=== PATIENT | male | born 1995 | race Caucasian/White ===

== ENCOUNTER 2022-05-13 01:39 | Inpatient (IN) ==
[2022-05-13] MEDS ORDERED: SODIUM CHLORIDE 0.9% 1000ML 1,000 ML IV STA (01:54)
[2022-05-13] MEDS ORDERED: ONDANSETRON INJ 2 MG/ML 2 ML VIAL IV STA (01:54)
--- NOTE | 2022-05-13 01:58 | Emergency Department Note ---
Impression & Plan Acute kidney injury ADMIT ED Provider Note HPI: The patient is a 27-year-old male who presents to the emergency department over concern for dehydration. Patient tells me that throughout the day today at work he was having generalized body aches, states he had some nausea and vomiting throughout the day today as well. 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 Patient went to the emergency room at [facility], he had lab work performed while waiting to be roomed and this did show evidence of elevated BUN and elevated creatinine at about 2.2. Patient got tired of waiting for room and therefore left and came to this emergency department for further assessment. On arrival the patient is hemodynamically stable, he complains of some myalgias as well as abdominal discomfort in addition to the nausea and vomiting he reported earlier in the day. He is otherwise in no acute distress on my initial assessment. ROS: - MSK: Myalgias - General: Abnormal outpatient lab work - GI: Nausea and vomiting, diarrhea *10 point review systems was conducted and is otherwise negative unless stated above *Outpatient medications and allergy history reviewed PE: General: Alert, NAD HEENT: Normocephalic, atraumatic Eyes: Extraocular eye movement is intact, no scleral erythema Pulmonary: Clear to auscultation bilaterally, no wheezing Cardio: Regular rate and rhythm GI: Abdomen is soft, nontender : No suprapubic tenderness MSK: No evidence of trauma or malformation of the extremities, no edema Skin: No evidence of rash Neuro: Alert, no focal deficits Psychiatric: Cooperative case monitor: - An order was placed for continuous cardiac monitoring - Patient was noted to be in Sinus rhythm with a rate of 60 CT ABDOMEN & PELVIS With Contrast: INDICATION: TECHNIQUE: Multiple, contiguous axial cuts of the abdomen and pelvis are obtained from the lung bases to the ischial tuberosities following the administration of IV contrast. Sagittal and coronal reformatted images are available. COMPARISON: FINDINGS: The lung bases are clear. The liver and spleen are normal in size and free of mass lesions. The gallbladder, bile ducts and pancreas are normal. The adrenal gland are unremarkable. The kidneys are normal in size and contour. No lesion or hydronephrosis. The appendix is unremarkable, as is the rest of the GI tract. Aorta is normal caliber. No adenopathy or extraluminal air. The osseous structures are normal. 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 Radiologist: Petros Dawn MD Medical Decision Making: Patient presented to the emergency department with concern for dehydration, states that he has had nausea and vomiting recently, states he is also had some myalgias. COVID-19 testing was obtained and is negative. Lab work was obtained and shows evidence of multiple metabolic abnormalities, patient has creatinine elevation to 2.12, also noted to have hyponatremia 128, hypokalemia at 2.8, patient also has a low chloride level at 81. Lactic acid is within normal limits, patient does have a slight anion gap, blood sugar is within normal limits. CT imaging of the abdomen pelvis was also obtained that shows no eviden ce of any acute findings. Patient was IV fluid resuscitated here in the ED, on my reassessment he states he is feeling improved and no longer is having any muscle cramps. I discussed the above findings with the patient, I did recommend admission given his multiple electrolyte abnormalities, acute kidney injury, and the fact that he does have proteinuria on urinalysis as well. Patient was in agreement. Case was discussed with the on-call hospitalist for [facility][note 3], Dr. Garcia, and the patient was admitted in stable condition for further care. Diagnosis: 1. Acute kidney injury 2. Nausea and vomiting 3. Hypokalemia 4. Hyponatremia 5. Hypochloremia 6. Proteinuria Disposition: Admission Juni Santoyo DO Emergency Medicine Past Med/Surg History Medical History (Updated 05/13/22 @ 06:11 by Juni Santoyo DO) Rhabdomyolysis Family History Other Family history non-contributory Social History Smoking Status: Current every day smoker Tobacco Type: Cigarettes Preferred Language: Salvadorean marital status: Single Current Living Situation: Significant Other current occupational status: employed Feels Safe at Home: Yes Allergies Allergies Allergy/AdvReac Type Severity Reaction Status Date / Time No Known Allergies Allergy Verified 11/14/19 22:04 Home Meds Home Medications Medication Instructions Recorded Confirmed Medical Marijuana 1 dose inhalation DIRECTED PRN 11/14/19 Pain Results & Data (ED) Vital Signs Vital Signs - 24 hr 05/13/22 01:42 05/13/22 02:08 05/13/22 02:36 Temperature 36.5 C Temperature Source Temporal Artery Scan Pulse Rate 98 H 105 H Pulse Rate [Finger] 64 Pulse Rhythm Regular Respiratory Rate 18 18 18 Respiratory Effort / Characteristics Non-Labored Spontaneous Non-Labored Spontaneous Respiratory Depth Normal Normal Blood Pressure 140/99 Blood Pressure [Left Arm] 146/85 H Blood Pressure Mean 112 Blood Pressure Mean [Left Arm] 105 Blood Pressure Position [Left Arm] Sitting Pulse Oximetry 98 97 97 Oxygen Delivery Method Room Air Room Air Room Air Sepsis Recent Fever Within 48 Hours No Sepsis New/Unexplained Change in Mental Status N/A Sepsis Action Taken by Nursing No Action Required 05/13/22 04:39 Temperature Temperature Source Pulse Rate Pulse Rate [Finger] 58 L Pulse Rhythm Respiratory Rate 16 Respiratory Effort / Characteristics Non-Labored Spontaneous Respiratory Depth Normal Blood Pressure Blood Pressure [Left Arm] 159/90 H Blood Pressure Mean Blood Pressure Mean [Left Arm] 113 Blood Pressure Position [Left Arm] Pulse Oximetry 98 Oxygen Delivery Method Room Air Sepsis Recent Fever Within 48 Hours Sepsis New/Unexplained Change in Mental Status Sepsis Action Taken by Nursing Laboratory Data Result diagrams: 05/13/22 02:00 05/13/22 02:00 Lab Results 05/13/22 05/13/22 05/13/22 Range/Units 02:00 02:00 04:28 WBC 11.08 H (4.8-10.8) K/ul RBC 5.54 (4.63-6.08) M/uL Hgb 17.6 (14.0-18.0) g/dl Hct 47.3 (40.1-51.0) % MCV 85.4 (80.0-100.0) fL MCH 31.8 (25.0-34.0) pg MCHC 37.2 H (32.0-36.0) g/dL RDW Std Deviation 37.7 (36.4-46.3) fL RDW Coeff of [place] 12.0 (11.5-14.5) % Plt Count 335 (130-400) K/uL MPV 10.5 (9.4-12.4) fL Immature Gran % (Auto) 0.1 % Neut % (Auto) 81.7 % Lymph % (Auto) 13.0 % [place] % (Auto) 5.1 % Eos % (Auto) 0.0 % Baso % (Auto) 0.1 % Neut # (Auto) 9.05 H (1.4-6.5) K/uL Lymph # (Auto) 1.44 (1.2-3.4) K/uL [place] # (Auto) 0.57 (0.24-0.82) K/uL Eos # (Auto) 0.00 (0-0.50) K/uL Baso # (Auto) 0.01 (0-0.2) K/uL Immature Gran # (Auto) 0.01 (0.00-0.02) K/uL Sodium 128 L (136-145) mmol/L Potassium 2.8 L (3.5-5.1) mmol/L Chloride 81 L (98-107) mmol/L Carbon Dioxide 31 (21-32) mmol/L Anion Gap 16 H (3-11) BUN 33 H (6-23) mg/dl Creatinine 2.12 H (0.6-1.4) mg/dl Est Cr Clr Drug Dosing 61.4 ml/min Est GFR ( Amer) 47.3 ml/min Est GFR (Non-Af Amer) 40.8 ml/min BUN/Creatinine Ratio 15.6 (10-20) Glucose 128 H (70-99(Fasting)) mg/dl Lactate 1.5 (0.4-2.0) mmol/L Calcium 10.4 H (8.5-10.1) mg/dl Total Bilirubin 1.0 (0.2-1.0) mg/dl AST 24 (13-39) U/L ALT 26 (7-52) U/L Alkaline Phosphatase 65 (34-104) U/L Total Creatine Kinase 416 H (30-223) U/L Total Protein 9.2 H (6.0-8.3) gm/dl Albumin 5.6 H (3.4-5.0) gm/dl Globulin 3.6 (2.5-4.0) gm/dl Albumin/Globulin Ratio 1.6 (0.9-2) Lipase 39 (11-82) U/L Urine Color Urine Appearance (Clear) Urine pH (4.5-7.5) Ur Specific [place] (1.000-1.030) Urine Protein (Negative) Urine Glucose (UA) (Negative) Urine Ketones (Negative) Urine Blood (Negative) Urine Nitrite (Negative) Urine Bilirubin (Negative) Urine Urobilinogen (Negative) Ur Leukocyte Esterase (Negative) Urine WBC (Auto) (0-5) /hpf Urine RBC (Auto) (0-4) /hpf U Hyaline Cast (Auto) (0-5) /lpf U Epithel Cells (Auto) (0-5) /lpf Urine Bacteria (Auto) (Negative) Ur Renal Epithelial Cell SARS-CoV-2 (PCR) (Negative) Influenza Type A (PCR) (Neg) Influenza Type B (PCR) (Neg) RSV (RT-PCR) (Neg) 05/13/22 05/13/22 Range/Units Unknown Unknown WBC (4.8-10.8) K/ul RBC (4.63-6.08) M/uL Hgb (14.0-18.0) g/dl Hct (40.1-51.0) % MCV (80.0-100.0) fL MCH (25.0-34.0) pg MCHC (32.0-36.0) g/dL RDW Std Deviation (36.4-46.3) fL RDW Coeff of [place] (11.5-14.5) % Plt Count (130-400) K/uL MPV (9.4-12.4) fL Immature Gran % (Auto) % Neut % (Auto) % Lymph % (Auto) % [place] % (Auto) % Eos % (Auto) % Baso % (Auto) % Neut # (Auto) (1.4-6.5) K/uL Lymph # (Auto) (1.2-3.4) K/uL [place] # (Auto) (0.24-0.82) K/uL Eos # (Auto) (0-0.50) K/uL Baso # (Auto) (0-0.2) K/uL Immature Gran # (Auto) (0.00-0.02) K/uL Sodium (136-145) mmol/L Potassium (3.5-5.1) mmol/L Chloride (98-107) mmol/L Carbon Dioxide (21-32) mmol/L Anion Gap (3-11) BUN (6-23) mg/dl Creatinine (0.6-1.4) mg/dl Est Cr Clr Drug Dosing ml/min Est GFR ( Amer) ml/min Est GFR (Non-Af Amer) ml/min BUN/Creatinine Ratio (10-20) Glucose (70-99(Fasting)) mg/dl Lactate (0.4-2.0) mmol/L Calcium (8.5-10.1) mg/dl Total Bilirubin (0.2-1.0) mg/dl AST (13-39) U/L ALT (7-52) U/L Alkaline Phosphatase (34-104) U/L Total Creatine Kinase (30-223) U/L Total Protein (6.0-8.3) gm/dl Albumin (3.4-5.0) gm/dl Globulin (2.5-4.0) gm/dl Albumin/Globulin Ratio (0.9-2) Lipase (11-82) U/L Urine Color Dark Yellow Urine Appearance Cloudy A (Clear) Urine pH 5.0 (4.5-7.5) Ur Specific [place] 1.025 (1.000-1.030) Urine Protein 3+ H (Negative) Urine Glucose (UA) Negative (Negative) Urine Ketones Trace H (Negative) Urine Blood Negative (Negative) Urine Nitrite Negative (Negative) Urine Bilirubin 1+ H (Negative) Urine Urobilinogen Negative (Negative) Ur Leukocyte Esterase Negative (Negative) Urine WBC (Auto) 10-30 H (0-5) /hpf Urine RBC (Auto) 5-10 H (0-4) /hpf U Hyaline Cast (Auto) >30 H (0-5) /lpf U Epithel Cells (Auto) 10-20 H (0-5) /lpf Urine Bacteria (Auto) Negative (Negative) Ur Renal Epithelial Cell Not Reportable SARS-CoV-2 (PCR) NEGATIVE (Negative) Influenza Type A (PCR) Negative (Neg) Influenza Type B (PCR) Negative (Neg) RSV (RT-PCR) Negative (Neg) Administered Medications Discontinued Medications Sodium Chloride (Nss 1000ml) 1,000 mls @ 999 mls/hr IV .Q1H1M STA Stop: 05/13/22 02:54 Last Infusion: 05/13/22 02:57 Dose: 0 mls/hr Documented By: Admin: 05/13/22 02:06 Dose: 999 mls/hr Documented By: MELQUIADES Sodium Chloride (Nss 1000ml) 1,000 mls @ 999 mls/hr IV .Q1H1M ONE Stop: 05/13/22 03:53 Last Infusion: 05/13/22 03:58 Dose: 0 mls/hr Documented By: Admin: 05/13/22 02:57 Dose: 999 mls/hr Documented By: MELQUIADES Sodium Chloride (Nss 1000ml) 1,000 mls @ 999 mls/hr IV .Q1H1M ONE Stop: 05/13/22 05:14 Last Infusion: 05/13/22 05:28 Dose: 0 mls/hr Documented By: Admin: 05/13/22 04:29 Dose: 999 mls/hr Documented By: CLAUDY Ioversol (Optiray 300 100ml) 100 ml IV ONCE ONE Stop: 05/13/22 03:39 Last Admin: 05/13/22 03:39 Dose: 100 ml Documented By: ISAAC Ondansetron HCl (Ondansetron Inj 2 Mg/Ml 2 Ml Vial) 4 mg IV NOW STA Stop: 05/13/22 01:55 Last Admin: 05/13/22 02:06 Dose: 4 mg Documented By: MELQUIADES Potassium Chloride (Potassium Chloride Crtab 20 Meq Tabcr) 40 meq PO NOW STA Stop: 05/13/22 02:55 Last Admin: 05/13/22 02:57 Dose: 40 meq Documented By: MELQUIADES Discharge Plan Visit Data Chief Complaint: Pain (Generalized) Stated Complaint: BODY CRAMPING,VOMITING ED Provider: Juni Santoyo Discharge Problem: Acute kidney injury Patient Disposition: Admitted As Inpatient Forms Stand Alone Forms: [facility] Prescriptions Prescriptions: No Action Medical Marijuana 1 dose inhalation DIRECTED PRN (Reason: Pain) Referrals Referrals: PCP,NO [Primary Care Provider] -
[2022-05-13 02:29] LABS: Basophils # (auto) 0.01 K/uL (0-0.2); Basophils % (auto) 0.1 %; Hematocrit (blood only) 47.3 % (40.1-51.0); Hemoglobin 17.6 g/dl (14.0-18.0); Immature Granulocytes # (auto) 0.01 K/uL (0.00-0.02); Immature Granulocytes % (auto) 0.1 %; Lymphocytes # (auto) 1.44 K/uL (1.2-3.4); Mean Corpuscular Hemoglobin 31.8 pg (25.0-34.0); Mean Corpuscular Hgb Conc 37.2 g/dL (32.0-36.0); Mean Corpuscular Volume 85.4 fL (80.0-100.0); Mean Platelet Volume 10.5 fL (9.4-12.4); Monocytes # (auto) 0.57 K/uL (0.24-0.82); Monocytes % (auto) 5.1 %; Neutrophils # (auto) 9.05 K/uL (1.4-6.5); Neutrophils % (auto) 81.7 %; Platelet Count 335 K/uL (130-400); RDW Standard Deviation 37.7 fL (36.4-46.3); Red Blood Count 5.54 M/uL (4.63-6.08); White Blood Count 11.08 K/ul (4.8-10.8)
[2022-05-13 02:36] LABS: Appearance Urine Cloudy (Clear); Bacteria Urine Automated Negative (Negative); Blood Urine Negative (Negative); Color Urine Dark Yellow; Glucose Urine UA Negative (Negative); Ketones Urine Trace (Negative); Leukocyte Esterase Urine Negative (Negative); Nitrite Urine Negative (Negative); Protein Urine 3+ (Negative); Specific Gravity Urine 1.025 (1.000-1.030); Urobilinogen Urine Negative (Negative)
[2022-05-13 02:43] LABS: Bilirubin Urine 1+ (Negative)
[2022-05-13 02:52] LABS: Albumin Globulin Ratio 1.6 (0.9-2); Albumin Level 5.6 gm/dl (3.4-5.0); BUN Creatinine Ratio 15.6 (10-20); Calcium 10.4 mg/dl (8.5-10.1); Creatinine Clr Calc Pharmacy 61.4 ml/min; Est GFR (African American) 47.3 ml/min; Est GFR (Non-African American) 40.8 ml/min; Globulin 3.6 gm/dl (2.5-4.0); Potassium 2.8 mmol/L (3.5-5.1); Total Protein 9.2 gm/dl (6.0-8.3)
[2022-05-13] MEDS ORDERED: SODIUM CHLORIDE 0.9% 1000ML 1,000 ML IV ONE ×2 (02:53→04:14)
[2022-05-13] MEDS ORDERED: POTASSIUM CHLORIDE CRTAB 20 MEQ TABCR PO STA ×2 (02:54→06:20)
[2022-05-13 03:09] LABS: Cast Urine Automated >30 /lpf (0-5)
[2022-05-13 03:10] LABS: Influenza A virus by PCR Negative (Neg); Influenza B virus by PCR Negative (Neg); RSV by PCR Negative (Neg); SARS CoV2 RNA(COVID-19) InHosp NEGATIVE (Negative)
[2022-05-13] MEDS ORDERED: OPTIRAY 300 100mL IV ONE (03:38)
--- NOTE | 2022-05-13 06:29 | History & Physical Report ---
Date of Service May 13, 2022 Assessment & Plan (1) Hyponatremia: Plan: ARF, hyponatremia, hypokalemia Secondary to clinical dehydration Possible viral illness Mild rhabdomyolysis Hyperglycemia rule out DM Ongoing tobacco abuse Medical telemetry Careful correction of sodium Hold off on IV fluid until next chemistry Hyponatremia work-up Nephrology consult if without improvement Replace electrolytes Check hemoglobin A1c Nicotine patch as needed DVT prophylaxis. Heparin subcu Full code Text document was generated using [employer] voice recognition software. It may contain grammatical or spelling errors. Kindly contact undersigned for clarification of any documentation item in question. History of Present Illness Chief Complaint: Abnormal blood work, dehydration Primary Care Provider: NO PCP History obtained from patient, family, and records. Medical history significant for tobacco abuse. 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 Work very heavy. Patient has to work in a very hot building. Patient did not feel well after coming off work last night. Body aches followed by nausea and vomiting. Generalized abdominal cramping. No diarrhea. No chest pain, no shortness of breath. Patient not sure about sick contacts. Patient seen at [facility] ER last night. Serum sodium noted to be 129, serum potassium 2.9, anion gap was 25, serum creatinine 2.2. Patient left AGAINST MEDICAL ADVICE because of long wait at the ED. Patient brought by to [facility] ER for further evaluation. 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 Allergies Allergy/AdvReac Type Severity Reaction Status Date / Time No Known Allergies Allergy Verified 11/14/19 22:04 Home Medications Medication Instructions Recorded Confirmed Type Medical Marijuana 1 dose inhalation DIRECTED PRN 11/14/19 History Pain Past Med/Surg History Medical History (Updated 05/13/22 @ 07:43 by Lonnie Ortega MD) Rhabdomyolysis Family History Other Family history non-contributory Social History Smoking Status: Current every day smoker Tobacco Type: Cigarettes Preferred Language: Finnish marital status: Single Current Living Situation: Significant Other current occupational status: employed Feels Safe at Home: Yes Review of Systems Review of Systems: As per HPI, all other systems reviewed and negative Physical Exam Physical Exam: GENERAL: Comfortable, obese, pleasant, no respiratory distress SKIN: Normal color, warm HEENT: [place] palpebral conjunctivae, no ptosis, dry buccal mucosa NECK : Supple, no tenderness CHEST : Occasional expiratory wheezes (chronic secondary to smoking as per patient), no tenderness HEART : Bradycardic, no obvious murmurs ABDOMEN: Some distention, nontender EXTREMITIES : No LE swelling/tenderness, no other conspicuous deformities noted NEUROLOGIC : Coherent, no facial asymmetry, no other gross focality Results & Data Results & Data ([facility]) Vital Signs (Past 12 Hours) Vital Signs Temp Pulse Pulse Resp BP BP Pulse Ox 05/13/22 04:39 58 L 16 159/90 H 98 05/13/22 02:36 64 18 146/85 H 97 05/13/22 02:08 105 H 18 97 05/13/22 01:42 36.5 C 98 H 18 140/99 98 O2 Del Method 05/13/22 04:39 Room Air 05/13/22 02:36 Room Air 05/13/22 02:08 Room Air 05/13/22 01:42 Room Air Laboratory Results Laboratory Results WBC 11.08 K/ul (4.8-10.8) H 05/13/22 02:00 RBC 5.54 M/uL (4.63-6.08) 05/13/22 02:00 Hgb 17.6 g/dl (14.0-18.0) 05/13/22 02:00 Hct 47.3 % (40.1-51.0) 05/13/22 02:00 MCV 85.4 fL (80.0-100.0) 05/13/22 02:00 MCH 31.8 pg (25.0-34.0) 05/13/22 02:00 MCHC 37.2 g/dL (32.0-36.0) H 05/13/22 02:00 RDW Std Deviation 37.7 fL (36.4-46.3) 05/13/22 02:00 RDW Coeff of [place] 12.0 % (11.5-14.5) 05/13/22 02:00 Plt Count 335 K/uL (130-400) 05/13/22 02:00 MPV 10.5 fL (9.4-12.4) 05/13/22 02:00 Immature Gran % (Auto) 0.1 % 05/13/22 02:00 Neut % (Auto) 81.7 % 05/13/22 02:00 Lymph % (Auto) 13.0 % 05/13/22 02:00 [place] % (Auto) 5.1 % 05/13/22 02:00 Eos % (Auto) 0.0 % 05/13/22 02:00 Baso % (Auto) 0.1 % 05/13/22 02:00 Neut # (Auto) 9.05 K/uL (1.4-6.5) H 05/13/22 02:00 Lymph # (Auto) 1.44 K/uL (1.2-3.4) 05/13/22 02:00 [place] # (Auto) 0.57 K/uL (0.24-0.82) 05/13/22 02:00 Eos # (Auto) 0.00 K/uL (0-0.50) 05/13/22 02:00 Baso # (Auto) 0.01 K/uL (0-0.2) 05/13/22 02:00 Immature Gran # (Auto) 0.01 K/uL (0.00-0.02) 05/13/22 02:00 Sodium 128 mmol/L (136-145) L 05/13/22 02:00 Potassium 2.8 mmol/L (3.5-5.1) L 05/13/22 02:00 Chloride 81 mmol/L (98-107) L 05/13/22 02:00 Carbon Dioxide 31 mmol/L (21-32) 05/13/22 02:00 Anion Gap 16 (3-11) H 05/13/22 02:00 BUN 33 mg/dl (6-23) H 05/13/22 02:00 Creatinine 2.12 mg/dl (0.6-1.4) H 05/13/22 02:00 Est Cr Clr Drug Dosing 61.4 ml/min 05/13/22 02:00 Est GFR ( Amer) 47.3 ml/min 05/13/22 02:00 Est GFR (Non-Af Amer) 40.8 ml/min 05/13/22 02:00 BUN/Creatinine Ratio 15.6 (10-20) 05/13/22 02:00 Glucose 128 mg/dl (70-99(Fasting)) H 05/13/22 02:00 Lactate 1.5 mmol/L (0.4-2.0) 05/13/22 04:28 Calcium 10.4 mg/dl (8.5-10.1) H 05/13/22 02:00 Total Bilirubin 1.0 mg/dl (0.2-1.0) 05/13/22 02:00 AST 24 U/L (13-39) 05/13/22 02:00 ALT 26 U/L (7-52) 05/13/22 02:00 Alkaline Phosphatase 65 U/L (34-104) 05/13/22 02:00 Total Creatine Kinase 416 U/L (30-223) H 05/13/22 02:00 Total Protein 9.2 gm/dl (6.0-8.3) H 05/13/22 02:00 Albumin 5.6 gm/dl (3.4-5.0) H 05/13/22 02:00 Globulin 3.6 gm/dl (2.5-4.0) 05/13/22 02:00 Albumin/Globulin Ratio 1.6 (0.9-2) 05/13/22 02:00 Lipase 39 U/L (11-82) 05/13/22 02:00 Urine Color Dark Yellow 05/13/22 Unknown Urine Appearance Cloudy (Clear) A 05/13/22 Unknown Urine pH 5.0 (4.5-7.5) 05/13/22 Unknown Ur Specific [place] 1.025 (1.000-1.030) 05/13/22 Unknown Urine Protein 3+ (Negative) H 05/13/22 Unknown Urine Glucose (UA) Negative (Negative) 05/13/22 Unknown Urine Ketones Trace (Negative) H 05/13/22 Unknown Urine Blood Negative (Negative) 05/13/22 Unknown Urine Nitrite Negative (Negative) 05/13/22 Unknown Urine Bilirubin 1+ (Negative) H 05/13/22 Unknown Urine Urobilinogen Negative (Negative) 05/13/22 Unknown Ur Leukocyte Esterase Negative (Negative) 05/13/22 Unknown Urine WBC (Auto) 10-30 /hpf (0-5) H 05/13/22 Unknown Urine RBC (Auto) 5-10 /hpf (0-4) H 05/13/22 Unknown U Hyaline Cast (Auto) >30 /lpf (0-5) H 05/13/22 Unknown U Epithel Cells (Auto) 10-20 /lpf (0-5) H 05/13/22 Unknown Urine Bacteria (Auto) Negative (Negative) 05/13/22 Unknown Ur Renal Epithelial Cell Not Reportable 05/13/22 Unknown SARS-CoV-2 (PCR) NEGATIVE (Negative) 05/13/22 Unknown Influenza Type A (PCR) Negative (Neg) 05/13/22 Unknown Influenza Type B (PCR) Negative (Neg) 05/13/22 Unknown RSV (RT-PCR) Negative (Neg) 05/13/[address] abdomen pelvis initial read: FINDINGS: The lung bases are clear. The liver and spleen are normal in size and free of mass lesions. The gallbladder, bile ducts and pancreas are normal. The adrenal gland are unremarkable. The kidneys are normal in size and contour. No lesion or hydronephrosis. The appendix is unremarkable, as is the rest of the GI tract. Aorta is normal caliber. No adenopathyor extraluminal air. The osseous structures are normal. 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 Chest x-ray as per my interpretation elevated right hemidiaphragm, thin heart
[2022-05-13] MEDS ORDERED: PROMETHAZINE HCL 12.5 MG in SODIUM CHLORIDE 0.9% 50 ML IV PRN (06:54)
[2022-05-13] MEDS ORDERED: oxyCODONE HCL IR 5 MG TAB (IMMEDIATE RELEASE) PO PRN (06:54)
[2022-05-13] MEDS ORDERED: LORazepam 0.5 MG TAB PO PRN (06:54)
[2022-05-13 07:39] LABS: Amphetamines+Metham, Urine Neg (Neg); Barbiturates, Urine Neg (Neg); Benzodiazepine, Urine Neg (Neg); Cocaine, Urine Neg (Neg); MDMA (Ecstacy), Urine Neg (Neg); Methadone, Urine Neg (Neg); Opiate, Urine Neg (Neg); Phencyclidine, Urine Neg (Neg)
--- NOTE | 2022-05-13 07:47 | CT Scan Report ---
ABDOMEN AND PELVIS CT WITH IV CONTRAST CT DOSE: 751.49 mGy.cm HISTORY: Generalized abdominal pain. Nausea. Vomiting. TECHNIQUE: Multiaxial CT images of the abdomen and pelvis were performed following the use of intrave nous contrast. A dose lowering technique was utilized adhering to the principles of ALARA. COMPARISON STUDY: None. FINDINGS: There are few small subpleural nodular densities within the left lower lobe with the larges t on image 42 measuring 5 mm. These are of doubtful clinical significance given the patient's age. No pneumoperitoneum. No pneumatosis. No fractures within the visualized osseous structures. The liver, gallbladder, spleen, adrenal glands, pancreas, and kidneys are unremarkable. No hydronephrosis. Gisselle l bladder. No pelvic free fluid. There is an atrophic right seminal vesicle in comparison to the left . The main portal vein is patent. No retroperitoneal lymphadenopathy. Normal caliber abdominal aorta. No bowel wall thickening or obstruction. Normal appendix. IMPRESSION: 1. No bowel wall thickening or obstruction. 2. No hydronephrosis. 3. Normal appendix. 3. Incidental note is made of an atrophic right seminal vesicle. ACT 112: Negative or not required by law. Electronically signed by: Jonas Lawrence M.D. 05/13/2022 7:45 AM
--- NOTE | 2022-05-13 08:09 | XRay Report ---
XR chest 1V portable HISTORY: renal failure COMPARISON: Chest 11/14/2019. FINDINGS: The lungs are clear. Cardiac silhouette is normal in size. No pleural effusions. No pneumot horax. There is mild elevation of the right hemidiaphragm. IMPRESSION: Mild elevation of the right hemidiaphragm. Otherwise, no acute process within the chest. ACT 112: Negative or not required by law. Electronically signed by: Jonas Lawrence M.D. 05/13/2022 8:08 AM
[2022-05-13 08:29] LABS: BUN Creatinine Ratio 22.4 (10-20); Calcium 8.5 mg/dl (8.5-10.1); Creatinine Clr Calc Pharmacy 121.7 ml/min; Est GFR (African American) 108.1 ml/min; Est GFR (Non-African American) 93.3 ml/min; Potassium 3.2 mmol/L (3.5-5.1)
[2022-05-13 08:40] LABS: Estimated Average Glucose 120 mg/dl; Hemoglobin A1C 5.8 % (4.5-5.6)
[2022-05-13] MEDS ORDERED: ACETAMINOPHEN 325 MG TAB PO PRN (10:18)
[2022-05-13] MEDS ORDERED: SODIUM CHLORIDE 0.9% 1000ML 1,000 ML IV SCH (10:45)
[2022-05-13] MEDS ORDERED: HEPARIN SOD 5,000 UNIT/0.5 ML VIAL SQ SCH (14:00)
--- NOTE | 2022-05-13 16:45 | Hospitalist Progress Note ---
Date of Service May 13, 2022 Assessment & Plan (1) Acute kidney injury: (2) Hyponatremia: Plan: Acute kidney injury likely prerenal etiology secondary to dehydration Mild hyponatremia --IV fluids given --Creatinine 2.1 on admission, improved to 1.07 Sodium on admission 128, improved to 132 --Advised to drink plenty of fluids Mild hypokalemia -- Potassium 2.8, replaced, improved to 3.2 -- Potassium 20 meq equivalents daily ordered -- Repeat and follow-up with PCP this week Mild rhabdomyolysis -- CPK 416 --Encouraged to drink plenty of fluids Prediabetes A1c 5.8 --Encouraged to follow-up with PCP Ongoing tobacco abuse -- Encouraged smoking cessation DVT prophylaxis. Heparin subcu Full code Disposition Discharge to home Follow-up with PCP in 1 week plan of care discussed with patient and his at the bedside in detail and at length all questions answered They are understanding, agreeable, comfortable with the plan of care Admission and Anticipated Discharge Date Admission Date: May 13, 2022 Subjective Follow-up for acute renal failure, etc. Seen resting in bed, comfortable, not in distress In good spirits States he feels much better overall Muscle pain resolved Denies headache, dizziness, chest pain, shortness of breath abdominal pain, nausea vomiting, changes with urination Ambulating in the room with no problems States that he is ready and would like to be discharged today Review of Systems Review of Systems: all noted and negative except for above Physical Exam Physical Exam: General- oriented x 3, not in distress, speaks in sentences with no effort or accessory muscle use Eyes- anicteric Neck- no JVD Lungs- clear breath sounds bilaterally, no rales/wheezes Heart- normal rate, regular rhythm; no murmurs Abdomen- normal bowel sounds, nondistended, soft, nontender Extremities- no pretibial edema, no calf tenderness Neuro- alert, oriented x 3; no gross focal neurologic deficits Skin- warm & dry Results & Data Results & Data ([facility]) Vital Signs (Past 12 Hours) Vital Signs Temp Pulse Resp BP Pulse Ox O2 Del Method 05/13/22 16:35 36.7 C 66 16 117/75 97 05/13/22 16:23 36.7 C 66 117/75 97 Room Air all noted and reviewed including below
--- NOTE | 2022-05-13 16:46 | Discharge Summary ---
Discharge Summary Date of Service May 13, 2022 Notes For Next Care Provider Repeat basic metabolic profile on follow-up visit with PCP Medication Changes From Visit New medication: Potassium 20 mEq daily x7 days Admission HPI Per Admitting Provider History obtained from patient, family, and records. Medical history significant for tobacco abuse. 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 Work very heavy. Patient has to work in a very hot building. Patient did not feel well after coming off work last night. Body aches followed by nausea and vomiting. Generalized abdominal cramping. No diarrhea. No chest pain, no shortness of breath. Patient not sure about sick contacts. Patient seen at [facility] ER last night. Serum sodium noted to be 129, serum potassium 2.9, anion gap was 25, serum creatinine 2.2. Patient left AGAINST MEDICAL ADVICE because of long wait at the ED. Patient brought by to [facility] ER for further evaluation. 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 Admission Exam Per Admitting Provider GENERAL: Comfortable, obese, pleasant, no respiratory distress SKIN: Normal color, warm HEENT: [place] palpebral conjunctivae, no ptosis, dry buccal mucosa NECK : Supple, no tenderness CHEST : Occasional expiratory wheezes (chronic secondary to smoking as per patient), no tenderness HEART : Bradycardic, no obvious murmurs ABDOMEN: Some distention, nontender EXTREMITIES : No LE swelling/tenderness, no other conspicuous deformities noted NEUROLOGIC : Coherent, no facial asymmetry, no other gross focality Principal Dx & Hospital Course #1 = Principal Diagnosis (1) Acute kidney injury: (2) Hyponatremia: Acute kidney injury likely prerenal etiology secondary to dehydration Mild hyponatremia --IV fluids given --Creatinine 2.1 on admission, improved to 1.07 Sodium on admission 128, improved to 132 --Advised to drink plenty of fluids Mild hypokalemia -- Potassium 2.8, replaced, improved to 3.2 -- Potassium 20 meq equivalents daily ordered -- Repeat and follow-up with PCP this week Mild rhabdomyolysis -- CPK 416 --Encouraged to drink plenty of fluids Prediabetes A1c 5.8 --Encouraged to follow-up with PCP Abnormal CT abdomen/pelvis findings -- There are few small subpleural nodular densities within the left lower lobe with the largest on image 42 measuring 5 mm. These are of doubtful clinical significance given the patient's age. -- Follow-up as an outpatient Ongoing tobacco abuse -- Encouraged smoking cessation DVT prophylaxis. Heparin subcu Full code Disposition Discharge to home Follow-up with PCP in 1 week plan of care discussed with patient and his at the bedside in detail and at length all questions answered They are understanding, agreeable, comfortable with the plan of care Discharge Exam General- oriented x 3, not in distress, speaks in sentences with no effort or accessory muscle use Eyes- anicteric Neck- no JVD Lungs- clear breath sounds bilaterally, no rales/wheezes Heart- normal rate, regular rhythm; no murmurs Abdomen- normal bowel sounds, nondistended, soft, nontender Extremities- no pretibial edema, no calf tenderness Neuro- alert, oriented x 3; no gross focal neurologic deficits Skin- warm & dry Updated Medication List Medication Instructions Recorded Confirmed Type Medical Marijuana 1 dose inhalation DIRECTED PRN 11/14/19 History Pain potassium chloride 20 mEq 20 meq PO DAILY #7 tabs 05/13/22 Rx tablet,extended release Hospital Stay Data Consultations 05/13/22 06:29 ED Decision to Admit Stat Diagnostic Imagining Performed Abdomen/Pelvis CT 05/13/22 01:[address] WITH IV CONTRAST CT DOSE: 751.49 mGy.cm HISTORY: Generalized abdominal pain. Nausea. Vomiting. TECHNIQUE: Multiaxial CT images of the abdomen and pelvis were performed following the use of intravenous contrast. A dose lowering technique was utilized adhering to the principles of ALARA. COMPARISON STUDY: None. FINDINGS: There are few small subpleural nodular densities within the left lower lobe with the largest on image 42 measuring 5 mm. These are of doubtful clinical significance given the patient's age. No pneumoperitoneum. No pneumatosis. No fractures within the visualized osseous structures. The liver, gallbladder, spleen, adrenal glands, pancreas, and kidneys are unremarkable. No hydronephrosis. Normal bladder. No pelvic free fluid. There is an atrophic right seminal vesicle in comparison to the left. The main portal vein is patent. No retroperitoneal lymphadenopathy. Normal caliber abdominal aorta. No bowel wall thickening or obstruction. Normal appendix. IMPRESSION: 1. No bowel wall thickening or obstruction. 2. No hydronephrosis. 3. Normal appendix. 3. Incidental note is made of an atrophic right seminal vesicle. ACT 112: Negative or not required by law. Electronically signed by: Jonas Lawrence M.D. 05/13/2022 7:45 AM Chest X-Ray 05/13/22 06:21 XR chest 1V portable HISTORY: renal failure COMPARISON: Chest 11/14/2019. FINDINGS: The lungs are clear. Cardiac silhouette is normal in size. No pleural effusions. No pneumothorax. There is mild elevation of the right hemidiaphragm. IMPRESSION: Mild elevation of the right hemidiaphragm. Otherwise, no acute process within the chest. ACT 112: Negative or not required by law. Electronically signed by: Jonas Lawrence M.D. 05/13/2022 8:08 AM Pending Results Patient Have Any Pending Studies at Discharge: No Discharge Instructions Given to Patient (Per Discharging Provider) PLEASE REFER TO YOUR NEW MEDICATION LIST AND FOLLOW INSTRUCTIONS CAREFULLY. YOUR NEW MEDICATIONS INCLUDE: Potassium supplement-follow potassium Please keep well-hydrated every day. Drink 8 to 10 glasses of water. No smoking/alcohol/illicit drugs. PLEASE CALL YOUR PRIMARY CARE PHYSICIAN OR RETURN TO THE ER IF WITH WORSENING OF SYMPTOMS, INCLUDING Fevers or chills, chest pain, shortness of breath, muscle pains, changes with urination. FOLLOW UP WITH PRIMARY CARE PHYSICIAN in 1 week. [facility] clinic will be calling patient for the appointment. Total Time Total Time Spent Total Time Spent (In Minutes): >30 minutes
[2022-05-15 07:57] LABS: Marijuana Quant, GCMS Urine 152 ng/mL (<5)
== END 2022-05-13 16:55 | disposition left against medical advice (07) | DRG 683 ==
LOC: ED 01:39 → EDINP 06:53 → 2N 10:19
DX: R10.84 Generalized abdominal pain; F17.210 Nicotine dependence, cigarettes, uncomplicated; R11.2 Nausea with vomiting, unspecified; E86.0 Dehydration; E87.8 Other disorders of electrolyte and fluid balance, not elsewhere classified; M62.82 Rhabdomyolysis; E66.9 Obesity, unspecified; E87.1 Hypo-osmolality and hyponatremia; E87.6 Hypokalemia; R73.03 Prediabetes; N17.9 Acute kidney failure, unspecified; Z68.32 Body mass index [BMI] 32.0-32.9, adult